=== PATIENT | female | born 1995 | race Caucasian/White ===

== ENCOUNTER 2019-11-26 19:00 | Emergency (ER) | payer OTHER ==
[~2019-11-26] VITALS: Ht 180.3 cm; Wt 90.7 kg
[2019-11-26 19:23] LABS: URINE BLOOD NEGATIVE (Negative); URINE CLARITY CLEAR; URINE COLOR YELLOW; URINE GLUCOSE-RANDOM NEGATIVE (Negative); URINE KETONES 1+ (Negative); URINE LEUKOCYTES-REFLEX NEGATIVE (Negative); URINE NITRITE-REFLEX NEGATIVE (Negative); URINE PROTEIN NEGATIVE (Negative); URINE SPECIFIC GRAVITY >= 1.030 (1.005-1.030)
[2019-11-26 19:27] LABS: ICTOTEST (BILI CONFIRMATORY) Negative (Negative); URINE BILIRUBIN 1+ (Negative)
[2019-11-26 19:35] LABS: ABSOLUTE EOSINOPHILS 0.1 thou/uL (0.0-0.7); ABSOLUTE LYMPHOCYTES 1.4 thou/uL (0.8-5.3); ABSOLUTE MONOCYTES 0.4 thou/uL (0.0-1.2); ABSOLUTE NEUTROPHILS 4.5 thou/uL (1.6-8.1); BASOPHILS 0.6 %; EOSINOPHILS 1.2 %; HEMOGLOBIN 8.5 gm/dL (12.0-15.0); LYMPHOCYTES 21.4 %; MCH 19.6 pg (26.0-34.0); MCHC 30.4 g/dL (28.0-37.0); MCV 64.6 fL (80.0-100.0); MPV 6.6 fl. (7.2-11.1); NUCLEATED RBCS 0 /100WBC; PLATELET COUNT* 282 thou/uL (150-400); POLYS 70.8 %; RBC 4.34 mil/uL (4.20-5.00); RDW-CV 17.6 % (10.5-14.5); WBC 6.4 thou/uL (4.0-11.0)
[2019-11-26 19:45] LABS: CALCIUM 9.1 mg/dL (8.5-10.1); CREATININE 0.8 mg/dL (0.6-1.3); POTASSIUM 3.7 mmol/L (3.5-5.1)
[2019-11-26 19:50] LABS: ALBUMIN 3.9 g/dL (3.4-5.0); TOTAL BILIRUBIN 0.4 mg/dL (<0.1-1.0); TOTAL PROTEIN 8.1 g/dL (6.4-8.2)
[2019-11-26 20:27] LABS: ANISOCYTOSIS 1+; HYPOCHROMASIA 3+; MICROCYTES 2+; OVALOCYTES Occasional; PLATELET ESTIMATE ADEQUATE; TEARDROPS Occasional
[2019-11-26] MEDS ORDERED: PROTONIX40 MG PO (21:38)
[2019-11-26] MEDS ORDERED: NORCO 5-325 TA1 EAC2 PO (21:39)
[2019-11-26 21:51] VITALS: BP 139/76
== END 2019-11-26 21:52 | disposition home or self-care (01) ==
LOC: M.ERS 19:00
PROVIDERS: Family Medicine
DX: K29.70 Gastritis, unspecified, without bleeding (principal); D64.9 Anemia, unspecified